=== PATIENT | male | born 1960 | race Caucasian/White ===

== ENCOUNTER 2019-01-30 17:08 | Inpatient (IN) | payer MEDICARE, MEDICAID ==
[~2019-01-30] VITALS: Ht 157.5 cm; Wt 50.6 kg
--- NOTE | 2019-01-30 17:23 | NUR ---
MARLO. REPORT RECEIVED FROM EMS. PT WAS TRANSFFERED FROM [facility] IN [place], [place]. PT C/O UPPER ABD AND LOWER CP. TROP1.020. PT HAS PACEMAKER. PT'S AOX4. RESPS EVEN AND UNLABORED. ALL MONITORS IN PLACE. CALL LIGHT WITHIN REACH. EDMDD AT BEDSIDE TO EVALUATE AT THIS TIME.
--- NOTE | 2019-01-30 17:26 | NUR ---
PT WAS GIVEN NITROX3 TIMES/2MG MORPHINE/UNKNOWN DOSE OF LOVENOX GIVEN AT ED AT [facility].
[2019-01-30] MEDS ORDERED: CARV3.1212 PO (17:27)
[2019-01-30] MEDS ORDERED: TICA90TA PO (17:28)
[2019-01-30] MEDS ORDERED: LISI-170 PO (17:28)
[2019-01-30] MEDS ORDERED: ASPI-496 PO (17:29)
[2019-01-30] MEDS ORDERED: NITR0.3T5 SL (17:29)
[2019-01-30] MEDS ORDERED: ATOR40TA78 PO (17:29)
[2019-01-30] MEDS ORDERED: ALEN70TA6 PO (17:30)
[2019-01-30] MEDS ORDERED: SODIUM CHLORIDE FLUSH 10ML SYR IVF ONE ×2 (17:30→18:00)
[2019-01-30] MEDS ORDERED: PANT40TA5 PO (17:30)
[2019-01-30] MEDS ORDERED: LEVO50TA5 PO (17:31)
[2019-01-30 17:41] LABS: BASOPHILS # (AUTO) 0.02 x10^3/uL (0-0.1); BASOPHILS % (AUTO) 0 % (0-1); EOSINOPHILS # (AUTO) 0.12 x10^3/uL (0-0.4); EOSINOPHILS % (AUTO) 2 % (1-7); LYMPHOCYTES % (AUTO) 17 % (22-44); MD NO; MEAN CORPUSCULAR HEMOGLOBIN 33.9 pg (27.5-34.5); MEAN CORPUSCULAR HGB CONC 32.7 g/dL (33.2-36.2); MEAN CORPUSCULAR VOLUME 103.7 fL (81-97); MEAN PLATELET VOLUME 8.3 fL (7.4-10.4); MONOCYTES # (AUTO) 0.57 x10^3/uL (0.2-0.8); MONOCYTES % (AUTO) 8 % (2-9); NEUTROPHILS # (AUTO) 5.31 x10^3/uL (1.8-6.8); NEUTROPHILS % (AUTO) 74 % (42-75); PLATELET COUNT 191 x10^3/uL (130-400); RED BLOOD COUNT 3.97 x10^6/uL (4.38-5.82); RED CELL DISTRIBUTION WIDTH 13.8 % (9.4-14.8)
[2019-01-30 17:49] LABS: ALANINE AMINOTRANSFERASE 40 U/L (12-78); ALBUMIN 3.2 g/dL (3.4-5.0); ANION GAP 8 mmol/L (5-15); CHLORIDE 112 mmol/L (98-107); CREATININE 0.94 mg/dL (0.7-1.3)
[2019-01-30 17:50] LABS: INTERNATIONAL NORMALIZED RATIO 1.02 (0.93-1.1); PROTHROMBIN TIME 10.7 Seconds (9.6-11.5)
[2019-01-30 17:54] LABS: ALKALINE PHOSPHATASE 86 U/L (45-117); BILIRUBIN,TOTAL 1.4 mg/dL (0.2-1.0); TOTAL PROTEIN 6.4 g/dL (6.4-8.2)
--- NOTE | 2019-01-30 18:02 | NUR ---
TROP 19.300 PER LAB. EDMD NOTIFIED.
--- NOTE | 2019-01-30 18:09 | NUR ---
MEAL TRAY PROVIDED AT THIS TIME.
[2019-01-30] MEDS ORDERED: NITROGLYCERIN OINT 2%, 1GM TP ONE ×2 (18:26→18:30)
--- NOTE | 2019-01-30 18:41 | NUR ---
PT APPLIED 1INCH NITROOINTMENT AT THIS TIME PER EDMD VERBAL ORDER. PT DENIES CP/PRESSURE. EDMD NOTIFIED.
--- NOTE | 2019-01-30 19:04 | NUR ---
REPORT GIVEN TO ANDRES CORONADO.
--- NOTE | 2019-01-30 19:08 | NUR ---
REPORT FROM CLIFF BROUSSARD, TO ASSUME CARE AT THIS TIME.
--- NOTE | 2019-01-30 19:11 | NUR ---
PER DR. PEREZ, PLAN FOR [facility] TOMORROW MORNING.
[2019-01-30] MEDS ORDERED: OMNIPAQUE 350 MG/ML, 100ML BOTTLE ONE (19:30)
[2019-01-30] MEDS ORDERED: MAALOX/HYOSCYAMINE/LIDOCAINE 45 ML BTL PO ONE (19:30)
[2019-01-30] MEDS ORDERED: NITROGLYCERIN 0.4 MG BOTTLE (25 TABS) SL PRN (19:30)
[2019-01-30] MEDS ORDERED: ONDANSETRON 2MG/ML, 2ML IVPush PRN (19:30)
[2019-01-30] MEDS ORDERED: LIDODERM 5% PATCH TD PRN (19:30)
[2019-01-30] MEDS ORDERED: BISACODYL 10 MG SUPP PR PRN (19:30)
[2019-01-30] MEDS ORDERED: morphine SULFATE 10 MG/ML, 1ML IVPush PRN (19:30)
[2019-01-30] MEDS ORDERED: ACETAMINOPHEN 325 MG TABLET PO PRN (19:30)
[2019-01-30] MEDS ORDERED: PANTOPRAZOLE 40 MG IV IVPush SCH (19:30)
[2019-01-30] MEDS ORDERED: ENALAPRILAT 1.25 MG/ML, 2ML IVPush PRN (19:30)
--- NOTE | 2019-01-30 19:39 | NUR ---
PT RESTING IN ROOM. VSS. NO NEEDS EXPRESSED. PT AWARE ON NPO STATUS. CALL LIGHT WITHIN REACH.
--- NOTE | 2019-01-30 19:53 | NUR ---
REPORT TO CLFIF DODGE. PT READY FOR TRANSPORT.
[2019-01-30 20:42] VITALS: BP 129/91
[2019-01-30] MEDS ORDERED: HEPARIN 5,000 UNITS/ML, 1ML IV PRN (21:00)
[2019-01-30] MEDS ORDERED: HEPARIN 5,000 UNITS/ML, 1ML IV ONE (21:00)
[2019-01-30] MEDS ORDERED: HEPARIN 25,000 UNITS/500ML PMX 500 ML IV PRN (21:00)
[2019-01-30] MEDS ORDERED: NITROGLYCERIN 0.4 MG SL PRN (22:00)
[2019-01-30] MEDS ORDERED: D5%-0.45% NACL 1,000 ML IV SCH (22:12)
[2019-01-30] MEDS ORDERED: ALBU18HF INH (22:41)
[2019-01-30] MEDS: ATORVASTATIN 40 MG TABLET PO SCH (22:50)
[2019-01-30] MEDS: TICAGRELOR 90 MG TABLET PO SCH (22:50)
[2019-01-30 22:53] VITALS: BP 110/75
[2019-01-30] MEDS: CARVEDILOL 3.125 MG TABLET PO SCH (22:54)
[2019-01-31 00:04] VITALS: BP 129/91
[2019-01-31 01:47] VITALS: BP 100/70
[2019-01-31 05:50] LABS: BASOPHILS # (AUTO) 0.02 x10^3/uL (0-0.1); BASOPHILS % (AUTO) 1 % (0-1); EOSINOPHILS # (AUTO) 0.09 x10^3/uL (0-0.4); EOSINOPHILS % (AUTO) 2 % (1-7); LYMPHOCYTES # (AUTO) 0.67 x10^3/uL (1-3.4); LYMPHOCYTES % (AUTO) 13 % (22-44); MD NO; MEAN CORPUSCULAR HEMOGLOBIN 34.3 pg (27.5-34.5); MEAN CORPUSCULAR HGB CONC 33.2 g/dL (33.2-36.2); MEAN CORPUSCULAR VOLUME 103.4 fL (81-97); MEAN PLATELET VOLUME 8.3 fL (7.4-10.4); MONOCYTES # (AUTO) 0.52 x10^3/uL (0.2-0.8); MONOCYTES % (AUTO) 10 % (2-9); NEUTROPHILS # (AUTO) 3.92 x10^3/uL (1.8-6.8); NEUTROPHILS % (AUTO) 75 % (42-75); PLATELET COUNT 161 x10^3/uL (130-400); RED BLOOD COUNT 3.45 x10^6/uL (4.38-5.82)
[2019-01-31 05:54] LABS: ANION GAP 7 mmol/L (5-15); CALCIUM 7.4 mg/dL (8.5-10.1); CHLORIDE 108 mmol/L (98-107)
[2019-01-31 06:02] LABS: CHOL/HDL RATIO 2.9; CHOLESTEROL, TOTAL 109 mg/dL (140-239); CREATININE 0.77 mg/dL (0.7-1.3); FREE T4 (FREE THYROXINE) 1.16 ng/dL (0.76-1.46); HDL CHOL % 35 % (26-37); HDL CHOLESTEROL (DIRECT) 38 mg/dL (40-60); LDL CHOLESTEROL,CALCULATED 59 mg/dL (54-169); LDL/HDL RATIO 1.6 (0.5-3.0); TRIGLYCERIDES 58 mg/dL (50-200); VLDL CHOLESTEROL 12 mg/dL (0-25)
[2019-01-31 08:00] VITALS: BP 109/75
[2019-01-31] MEDS: PANTOPROZOLE 40MG TABLET PO SCH (09:31)
[2019-01-31] MEDS: ASPIRIN 81 MG TABLET EC PO SCH (09:31)
[2019-01-31] MEDS: LEVOTHYROXINE 50 MCG TABLET PO SCH (09:31)
[2019-01-31] MEDS: LISINOPRIL 5 MG TABLET PO SCH (09:31)
[2019-01-31] MEDS: CARVEDILOL 3.125 MG TABLET PO SCH ×2 (09:34→20:54)
[2019-01-31] MEDS: TICAGRELOR 90 MG TABLET PO SCH ×2 (09:34→20:54)
[2019-01-31] MEDS ORDERED: SODIUM CHLORIDE 0.9% 1,000 ML IV SCH (11:00)
[2019-01-31] MEDS: ALBUTEROL SULFATE 2.5 MG/3 ML NPPB PRN ×2 (11:54→22:13)
[2019-01-31] MEDS ORDERED: FENTANYL PF 100 MCG/2ML ONE ×2 (13:33→13:37)
[2019-01-31] MEDS ORDERED: MIDAZOLAM 1 MG/ML, 5ML ONE ×2 (13:33→13:37)
[2019-01-31] MEDS ORDERED: HEPARIN 1,000 UNITS/ML, 10ML ONE ×2 (13:33→13:38)
[2019-01-31] MEDS ORDERED: VERAPAMIL 2.5 MG/ML, 2ML ONE ×2 (13:33→13:38)
[2019-01-31] MEDS ORDERED: BIVALIRUDIN 250 MG ONE ×2 (13:34→13:38)
[2019-01-31] MEDS ORDERED: LIDOCAINE-MPF 1%, 5ML ONE (13:38)
[2019-01-31] MEDS ORDERED: TICAGRELOR 90 MG TABLET ONE (13:38)
[2019-01-31] MEDS: methylPREDNISolone SOD SUCC 40 MG/ML IV SCH ×2 (15:02→21:51)
[2019-01-31 15:09] VITALS: BP 125/86
[2019-01-31 19:19] VITALS: BP 116/83
[2019-01-31 20:53] VITALS: BP 103/66
[2019-01-31] MEDS: ATORVASTATIN 40 MG TABLET PO SCH (20:55)
[2019-02-01 00:46] VITALS: BP 113/77
[2019-02-01] MEDS ORDERED: TEMAZEPAM 15 MG CAPSULE PO PRN (02:00)
[2019-02-01] MEDS: methylPREDNISolone SOD SUCC 40 MG/ML IV SCH ×2 (06:19→14:03)
[2019-02-01 06:25] LABS: BASOPHILS % (AUTO) 0 % (0-1); EOSINOPHILS % (AUTO) 0 % (1-7); LYMPHOCYTES # (AUTO) 0.34 x10^3/uL (1-3.4); LYMPHOCYTES % (AUTO) 6 % (22-44); MD NO; MEAN CORPUSCULAR HEMOGLOBIN 33.8 pg (27.5-34.5); MEAN CORPUSCULAR HGB CONC 32.6 g/dL (33.2-36.2); MEAN CORPUSCULAR VOLUME 103.8 fL (81-97); MEAN PLATELET VOLUME 8.5 fL (7.4-10.4); MONOCYTES # (AUTO) 0.06 x10^3/uL (0.2-0.8); MONOCYTES % (AUTO) 1 % (2-9); NEUTROPHILS # (AUTO) 5.79 x10^3/uL (1.8-6.8); NEUTROPHILS % (AUTO) 94 % (42-75); PLATELET COUNT 196 x10^3/uL (130-400); RED BLOOD COUNT 3.98 x10^6/uL (4.38-5.82); RED CELL DISTRIBUTION WIDTH 14.7 % (9.4-14.8)
[2019-02-01 06:36] VITALS: BP 117/85
[2019-02-01 06:37] LABS: CHLORIDE 111 mmol/L (98-107)
[2019-02-01 06:47] LABS: ALANINE AMINOTRANSFERASE 45 U/L (12-78); ALBUMIN 3.5 g/dL (3.4-5.0); ALKALINE PHOSPHATASE 89 U/L (45-117); ANION GAP 8 mmol/L (5-15); CALCIUM 8.7 mg/dL (8.5-10.1); CREATININE 0.88 mg/dL (0.7-1.3); TOTAL PROTEIN 6.8 g/dL (6.4-8.2)
[2019-02-01 08:09] LABS: CLOSTRIDIUM DIFFICILE TOXIN NEGATIVE (Negative); CRYPTOSPORIDIUM ANTIGEN Negative (Negative)
[2019-02-01 08:12] LABS: CLOSTRIDIUM DIFFICILE ANTIGEN POSITIVE
[2019-02-01] MEDS: LEVOTHYROXINE 50 MCG TABLET PO SCH (08:38)
[2019-02-01] MEDS: ASPIRIN 81 MG TABLET EC PO SCH (08:39)
[2019-02-01] MEDS: CARVEDILOL 3.125 MG TABLET PO SCH ×2 (08:39→20:57)
[2019-02-01] MEDS: PANTOPROZOLE 40MG TABLET PO SCH (08:39)
[2019-02-01] MEDS: TICAGRELOR 90 MG TABLET PO SCH ×2 (08:39→20:57)
[2019-02-01] MEDS: LISINOPRIL 5 MG TABLET PO SCH (08:43)
[2019-02-01 12:53] VITALS: BP 134/92
[2019-02-01 19:42] VITALS: BP 124/82
[2019-02-01] MEDS: ALBUTEROL SULFATE 2.5 MG/3 ML NPPB PRN (20:34)
[2019-02-01] MEDS: ATORVASTATIN 40 MG TABLET PO SCH (20:57)
[2019-02-02 01:19] VITALS: BP 109/75
[2019-02-02 07:36] VITALS: BP 127/87
[2019-02-02] MEDS: LISINOPRIL 5 MG TABLET PO SCH (08:01)
[2019-02-02] MEDS: CARVEDILOL 3.125 MG TABLET PO SCH (08:01)
[2019-02-02] MEDS: LEVOTHYROXINE 50 MCG TABLET PO SCH (08:01)
[2019-02-02] MEDS: TICAGRELOR 90 MG TABLET PO SCH (08:01)
[2019-02-02] MEDS: PANTOPROZOLE 40MG TABLET PO SCH (08:02)
[2019-02-02] MEDS: ASPIRIN 81 MG TABLET EC PO SCH (08:02)
[2019-02-02] MEDS ORDERED: SPIRONOLACTONE 25 MG TABLET PO SCH (09:30)
[2019-02-02] MEDS ORDERED: SPIR25TA PO (10:29)
== END 2019-02-02 12:59 | disposition home or self-care (01) | DRG 281 ==
LOC: ED 17:41 → EDIP 18:31 → 5SO 20:36
PROVIDERS: ADMIT Internal Medicine; ATTEND Internal Medicine
PROC: 4A023N7 Measurement of Cardiac Sampling and Pressure, Left Heart, Percutaneous Approach (ICD-10-PCS; principal; 2019-01-31)
PROC: B2111ZZ Fluoroscopy of Multiple Coronary Arteries using Low Osmolar Contrast (ICD-10-PCS; 2019-01-31)
PROC: B2131ZZ Fluoroscopy of Multiple Coronary Artery Bypass Grafts using Low Osmolar Contrast (ICD-10-PCS; 2019-01-31)
PROC: B2151ZZ Fluoroscopy of Left Heart using Low Osmolar Contrast (ICD-10-PCS; 2019-01-31)
PROC: B2181ZZ Fluoroscopy of Left Internal Mammary Bypass Graft using Low Osmolar Contrast (ICD-10-PCS; 2019-01-31)
DX: T82.898A Other specified complication of vascular prosthetic devices, implants and grafts, initial encounter (principal); I21.4 Non-ST elevation (NSTEMI) myocardial infarction; K56.7 Ileus, unspecified; I44.2 Atrioventricular block, complete; J44.1 Chronic obstructive pulmonary disease with (acute) exacerbation; K52.9 Noninfective gastroenteritis and colitis, unspecified; D75.89 Other specified diseases of blood and blood-forming organs; E53.8 Deficiency of other specified B group vitamins; E78.5 Hyperlipidemia, unspecified; F12.90 Cannabis use, unspecified, uncomplicated; I11.9 Hypertensive heart disease without heart failure; I25.10 Atherosclerotic heart disease of native coronary artery without angina pectoris; I25.2 Old myocardial infarction; I25.5 Ischemic cardiomyopathy; I73.9 Peripheral vascular disease, unspecified; K22.70 Barrett's esophagus without dysplasia; Y83.8 Other surgical procedures as the cause of abnormal reaction of the patient, or of later complication, without mention of misadventure at the time of the procedure; Y92.89 Other specified places as the place of occurrence of the external cause; Z82.49 Family history of ischemic heart disease and other diseases of the circulatory system; Z87.891 Personal history of nicotine dependence; Z95.0 Presence of cardiac pacemaker; Z95.5 Presence of coronary angioplasty implant and graft; Z90.49 Acquired absence of other specified parts of digestive tract
CPT/HCPCS: 36415; 74018; 74021; 74177; 80048; 80053; 80061; 83605; 83690; 83735; 84100; 84439; 84443; 84484; 85025; 85520; 85610; 87324; 87328; 87329; 87493; 89055; 93005; 93306; 93459; 93567; 94640; 99156; 99157; 99285; C1760; C1769; C1894; G0378; J0583; J1644; J2250; J3010; J7613; Q9967; J2270; J2920; J7030; J7512